=== PATIENT | female | born 1965 | race Caucasian/White ===

== ENCOUNTER 2021-12-03 13:39 | Inpatient (IN) | payer BC, OTHER ==
[2021-12-03 14:20] LABS: Bilirubin Neg (Negative); Blood, Urine Negative (Negative); Glucose, Urine (Dipstick) 100 mg/dL (Negative); Ketone, Urine Negative (Negative); Leukocyte Negative (Negative); Nitrite Negative (Negative); Protein, Urine (Dipstick) 15 mg/dl (Neg-Trace); Specific Gravity, Urine 1.015 (1.002-1.036); Urobilinogen Normal mg/dL (Less than 2)
[2021-12-03 14:31] LABS: Clarity Slightly Cloudy (Clear)
[2021-12-03] MEDS ORDERED: cloNIDine 0.1 MG TAB ONE (14:51)
[2021-12-03 15:10] LABS: #Eosinphils 0.1 10x3/uL (0.0-0.5); #Monocytes 0.4 10x3/uL (0.0-1.1); #Neutrophils 4.7 10x3/uL (1.5-8.4); %Basophils 0.3 % (0.0-2.0); %Eosinophils 1.2 % (0.0-6.0); %Lymphocytes 13.5 % (18.0-47.0); %Monocytes 6.8 % (0.0-10.0); %Neutrophils 77.7 % (40.0-75.0); Hemoglobin 13.4 g/dL (12.0-15.5); Mean Corpuscular HGB CONC 35.4 g/dL (32.0-36.0); Mean Corpuscular Hemoglobin 31.5 pg (27.0-33.0); Mean Corpuscular Volume 89.2 fl (81.6-98.3); Mean Platelet Volume 8.6 fl (7.4-10.4); Platelet Count 261 10x3/uL (150-450); RBC Distribution Width 12.2 % (11.5-14.5); Red Blood Cell (RBC) Count 4.25 10x6/uL (3.90-5.03); White Blood Cell (WBC) Count 6.1 10x3/uL (3.5-10.5)
[2021-12-03 15:30] LABS: ALT (SGPT) 19 U/L (8-55); AST (SGOT) 19 U/L (5-34); Albumin 4.6 g/dL (3.5-5.0); Alkaline Phosphatase 87 U/L (40-110); Anion Gap 12 mmol/L (10-20); BUN (Urea Nitrogen) 7 mg/dL (9.8-20.1); Bilirubin, Total 0.4 mg/dL (0.2-1.2); Calc. Creatinine Clearance 0 mL/min (70-130); Carbon Dioxide 26 mmol/L (22-29); Chloride 87 mmol/L (98-107); Estimated GFR 97; Globulin 2.2 g/dL (2.4-3.5); Glucose 108 mg/dL (70-105); Potassium 4.4 mmol/L (3.5-5.1); Protein, Total 6.8 g/dL (6.0-8.3); Sodium 121 mmol/L (136-145)
[2021-12-03] MEDS ORDERED: Ondansetron PF 4 MG/2 ML Vial IVP PRN (17:31)
[2021-12-03] MEDS ORDERED: Bisacodyl 10 MG SUPP PR PRN (17:31)
[2021-12-03] MEDS ORDERED: Calcium Carbonate 500 MG ChewTAB PO PRN (17:31)
[2021-12-03 18:13] LABS: Anion Gap 13 mmol/L (10-20); BUN (Urea Nitrogen) 6 mg/dL (9.8-20.1); Calc. Creatinine Clearance 0 mL/min (70-130); Carbon Dioxide 25 mmol/L (22-29); Chloride 89 mmol/L (98-107); Estimated GFR 95; Glucose 163 mg/dL (70-105); Potassium 3.8 mmol/L (3.5-5.1); Sodium 123 mmol/L (136-145)
[2021-12-03 18:20] LABS: Troponin I Less than 0.010 ng/mL (< 0.028)
[2021-12-03] MEDS ORDERED: NIFEdipine XL 60 MG TAB PO SCH (20:00)
[2021-12-03 20:46] LABS: Bilirubin Neg (Negative); Blood, Urine Negative (Negative); Clarity Clear (Clear); Glucose, Urine (Dipstick) Normal (Negative); Ketone, Urine Negative (Negative); Leukocyte Negative (Negative); Nitrite Negative (Negative); Protein, Urine (Dipstick) Negative (Neg-Trace); Urobilinogen Normal mg/dL (Less than 2)
[2021-12-03 20:51] LABS: Urine Culture Reflex No No
[2021-12-03 20:54] LABS: Bacteria/HPF Rare-Few HPF (None Seen); RBC/HPF 0-3 HPF (0-3); Squamous Epithelial 0-3 HPF (0-3); WBC/HPF 0-3 HPF (0-3)
[2021-12-03 21:18] VITALS: BMI 22.1
[2021-12-03 21:48] LABS: Troponin I Less than 0.010 ng/mL (< 0.028)
[2021-12-03 21:57] LABS: Anion Gap 12 mmol/L (10-20); BUN (Urea Nitrogen) 7 mg/dL (9.8-20.1); Calc. Creatinine Clearance 73 mL/min (70-130); Calcium 9.2 mg/dL (7.8-10.44); Carbon Dioxide 26 mmol/L (22-29); Chloride 93 mmol/L (98-107); Estimated GFR 90; Glucose 121 mg/dL (70-105); Potassium 3.9 mmol/L (3.5-5.1); Sodium 127 mmol/L (136-145)
[2021-12-03] MEDS: Acetaminophen 325 MG TAB PO PRN (22:35)
[2021-12-03] MEDS ORDERED: carBAMazepine 200 MG TAB PO SCH (23:00)
[2021-12-03 23:04] LABS: Potassium, Urine Less than 10.0 mmol/L; Sodium, Urine 27 mmol/L (Not Available)
[2021-12-04 02:19] LABS: Anion Gap 13 mmol/L (10-20); BUN (Urea Nitrogen) 10 mg/dL (9.8-20.1); Calc. Creatinine Clearance 73 mL/min (70-130); Calcium 9.1 mg/dL (7.8-10.44); Carbon Dioxide 25 mmol/L (22-29); Chloride 98 mmol/L (98-107); Estimated GFR 90; Glucose 85 mg/dL (70-105); Potassium 4.1 mmol/L (3.5-5.1); Sodium 132 mmol/L (136-145)
[2021-12-04 04:48] LABS: Anion Gap 13 mmol/L (10-20); BUN (Urea Nitrogen) 11 mg/dL (9.8-20.1); Calc. Creatinine Clearance 73 mL/min (70-130); Calcium 9.2 mg/dL (7.8-10.44); Carbon Dioxide 25 mmol/L (22-29); Chloride 99 mmol/L (98-107); Estimated GFR 90; Glucose 86 mg/dL (70-105); Potassium 4.2 mmol/L (3.5-5.1); Sodium 133 mmol/L (136-145)
[2021-12-04 04:48] LABS: #Eosinphils 0.1 10x3/uL (0.0-0.5); #Monocytes 0.6 10x3/uL (0.0-1.1); #Neutrophils 3.3 10x3/uL (1.5-8.4); %Basophils 0.3 % (0.0-2.0); %Eosinophils 2.4 % (0.0-6.0); %Lymphocytes 29.1 % (18.0-47.0); %Monocytes 10.7 % (0.0-10.0); %Neutrophils 57.2 % (40.0-75.0); Hemoglobin 12.9 g/dL (12.0-15.5); Mean Corpuscular HGB CONC 34.9 g/dL (32.0-36.0); Mean Corpuscular Hemoglobin 30.9 pg (27.0-33.0); Mean Corpuscular Volume 88.5 fl (81.6-98.3); Mean Platelet Volume 8.8 fl (7.4-10.4); Platelet Count 269 10x3/uL (150-450); RBC Distribution Width 12.8 % (11.5-14.5); Red Blood Cell (RBC) Count 4.18 10x6/uL (3.90-5.03); White Blood Cell (WBC) Count 5.8 10x3/uL (3.5-10.5)
[2021-12-04] MEDS: hydrALAZINE 20 MG/ML VIAL SLOW IVP PRN ×2 (05:09→16:41)
[2021-12-04] MEDS: HYDROcodone/Acetaminophen 5/325 mg Tablet PO PRN ×3 (08:51→22:49)
[2021-12-04] MEDS: Metoprolol Tartrate 50 MG TAB PO SCH ×2 (08:52→20:16)
[2021-12-04] MEDS: NIFEdipine XL 90 MG TAB PO SCH (08:52)
[2021-12-04] MEDS: Bupropion 150 MG XL TAB PO SCH (08:52)
[2021-12-04] MEDS: Enoxaparin Sodium 40 MG/0.4 ML SYRINGE SC SCH (08:53)
[2021-12-04] MEDS ORDERED: NIFEdipine XL 60 MG TAB PO SCH (09:00)
[2021-12-04] MEDS ORDERED: carBAMazepine 200 MG TAB PO SCH ×2 (09:00→21:00)
[2021-12-04] MEDS ORDERED: PATIENT'S HOME MEDICATION PO SCH (10:00)
[2021-12-04 14:28] LABS: Potassium 4.1 mmol/L (3.5-5.1)
[2021-12-04] MEDS ORDERED: Dextrose 5% in Water 1,000 ML IV SCH (18:45)
[2021-12-04] MEDS: PATIENT'S HOME MEDICATION PO SCH (20:16)
[2021-12-04] MEDS: traZODone HCl 50 MG TAB PO SCH (20:16)
[2021-12-04 21:05] LABS: Potassium 3.6 mmol/L (3.5-5.1)
[2021-12-05 04:59] LABS: Anion Gap 13 mmol/L (10-20); BUN (Urea Nitrogen) 11 mg/dL (9.8-20.1); Calc. Creatinine Clearance 77 mL/min (70-130); Calcium 8.8 mg/dL (7.8-10.44); Carbon Dioxide 24 mmol/L (22-29); Chloride 93 mmol/L (98-107); Estimated GFR 95; Glucose 93 mg/dL (70-105); Potassium 3.7 mmol/L (3.5-5.1); Sodium 126 mmol/L (136-145)
[2021-12-05] MEDS: NIFEdipine XL 90 MG TAB PO SCH (09:07)
[2021-12-05] MEDS: Enoxaparin Sodium 40 MG/0.4 ML SYRINGE SC SCH (09:08)
[2021-12-05] MEDS: Bupropion 150 MG XL TAB PO SCH (09:08)
[2021-12-05] MEDS: Metoprolol Tartrate 50 MG TAB PO SCH ×2 (09:08→20:19)
[2021-12-05] MEDS: Acetaminophen 325 MG TAB PO PRN (09:08)
[2021-12-05] MEDS: PATIENT'S HOME MEDICATION PO SCH ×2 (09:11→20:20)
[2021-12-05] MEDS: HYDROcodone/Acetaminophen 5/325 mg Tablet PO PRN (12:01)
[2021-12-05] MEDS: hydrALAZINE 20 MG/ML VIAL SLOW IVP PRN (16:38)
[2021-12-05] MEDS: traZODone HCl 50 MG TAB PO SCH (20:19)
[2021-12-05] MEDS ORDERED: Sodium Chloride 1 GM TAB PO SCH (22:30)
[2021-12-06 04:07] LABS: Anion Gap 13 mmol/L (10-20); BUN (Urea Nitrogen) 10 mg/dL (9.8-20.1); Calc. Creatinine Clearance 77 mL/min (70-130); Calcium 8.7 mg/dL (7.8-10.44); Carbon Dioxide 22 mmol/L (22-29); Chloride 95 mmol/L (98-107); Estimated GFR 95; Glucose 92 mg/dL (70-105); Potassium 4.3 mmol/L (3.5-5.1); Sodium 126 mmol/L (136-145)
[2021-12-06] MEDS: Metoprolol Tartrate 50 MG TAB PO SCH (08:18)
[2021-12-06] MEDS: Enoxaparin Sodium 40 MG/0.4 ML SYRINGE SC SCH (08:18)
[2021-12-06] MEDS: NIFEdipine XL 90 MG TAB PO SCH (08:19)
[2021-12-06] MEDS: Bupropion 150 MG XL TAB PO SCH (08:20)
[2021-12-06] MEDS: PATIENT'S HOME MEDICATION PO SCH (08:21)
[2021-12-06] MEDS ORDERED: Sodium Chloride 1 GM TAB PO SCH (08:45)
[2021-12-06 11:48] VITALS: BP 169/80; TEMP 97.8
== END 2021-12-06 12:00 | disposition home or self-care (01) | DRG 305 ==
LOC: CSHERS 13:39 → OBSVTOIN 19:47 → CSHTELE 19:47
PROVIDERS: ADMIT Family Medicine; ATTEND Family Medicine
DX: I16.0 Hypertensive urgency (principal); E87.1 Hypo-osmolality and hyponatremia; E87.8 Other disorders of electrolyte and fluid balance, not elsewhere classified; F32.A Depression, unspecified; F41.9 Anxiety disorder, unspecified; J45.909 Unspecified asthma, uncomplicated; Z20.822 Contact with and (suspected) exposure to COVID-19; T46.5X5A Adverse effect of other antihypertensive drugs, initial encounter; T44.7X5A Adverse effect of beta-adrenoreceptor antagonists, initial encounter; Y92.009 Unspecified place in unspecified non-institutional (private) residence as the place of occurrence of the external cause; Z88.8 Allergy status to other drugs, medicaments and biological substances; Z79.51 Long term (current) use of inhaled steroids; Z79.899 Other long term (current) drug therapy; Z90.49 Acquired absence of other specified parts of digestive tract
CPT/HCPCS: 36415; 80048; 80053; 81003; 82436; 82533; 83930; 83935; 84133; 84300; 84443; 84484; 85025; 93005; 93306; 96360; J0360; J1650; J2405; J2597; J7070; U0003; U0005